=== PATIENT | female | born 1990 | race Caucasian/White ===

== ENCOUNTER 2016-09-14 23:15 | Inpatient (IN) | payer BC ==
[2016-09-14] MEDS ORDERED: LACTATED RINGERS 1,000 ML IV SCH (23:45)
[2016-09-14] MEDS ORDERED: LACTATED RINGERS 500 ML IV SCH (23:45)
[2016-09-15 00:06] LABS: Glucose,Whole Blood 107 mg/dL (75-99)
[2016-09-15] MEDS ORDERED: ceFAZolin 2 GM in SODIUM CHLORIDE 0.9% 100 ML IVPB STA (00:26)
[2016-09-15] MEDS ORDERED: CITRIC ACID-SODIUM CITRATE 15 ML CUP PO ONE (00:30)
[2016-09-15] MEDS ORDERED: LACTATED RINGERS 1,000 ML IV ONE (00:30)
[2016-09-15 00:44] LABS: Basophils # (A) 0.1 k/uL (0-0.2); Basophils % (A) 1 %; CH 27.2; CHCM 34.6; Eosinophils # (A) 0.1 k/uL (0-0.7); Eosinophils % (A) 1 %; HCT 33.1 % (34.0-46.0); HDW 3.75; Luc # (Auto) 0.16; Luc % (Auto) 2; Lymphocytes # (A) 1.6 k/uL (1.0-4.8); Lymphocytes % (A) 17 %; MCH 26.3 pg (25.0-35.0); MCHC 33.3 g/dL (31.0-37.0); MCV 79.1 fL (80.0-100.0); Mean Platelet Volume 8.8; Monocytes # (A) 0.7 k/uL (0-1.0); Monocytes % (A) 8 %; Neutrophils # (A) 6.6 k/uL (1.3-7.7); Neutrophils % (A) 71 %; Poikilocytosis Slight; RBC 4.18 m/uL (3.80-5.40); RDW 13.6 % (11.5-15.5); WBC 9.2 k/uL (3.8-10.6); WBC (Perox) 9.55
[2016-09-15] MEDS ORDERED: MIDAZOLAM 2 MG/2 ML VIAL ONE (00:54)
[2016-09-15] MEDS ORDERED: NALBUPHINE 10 MG/ML AMPUL ONE (00:54)
[2016-09-15] MEDS ORDERED: MORPHINE SULFATE (PF) 0.3 MG/0.3 ML SYR ONE (00:54)
[2016-09-15] MEDS ORDERED: ONDANSETRON 4 MG/2 ML VIAL ONE (00:54)
[2016-09-15] MEDS ORDERED: OXYTOCIN 10 UNIT/ML 1 ML VIAL IM ONE (00:54)
--- NOTE | 2016-09-15 00:56 | P.HPOB ---
History of Present Illness H&P Date: 09/15/16 Chief Complaint: Vaginal bleeding at 37 weeks gestation This is a 26-year-old 5 para 1031 woman who presents at 37 weeks gestation with bright red vaginal bleeding and contractions. She has an estimated due date of 10/03/2016 based on LMP. has been complicated by complete placenta previa in the early portion of the which on most recent ultrasound now is a low-lying posterior placenta. She reports episode of bright red vaginal bleeding and clots at approximately 10:30 PM. She presented to labor and delivery triage where she was not having active bleeding but she did have spontaneous rupture of clear fluids. She was found to be mauricio every 2-4 minutes. Her vital signs were stable and status is reassuring. She and the father of the baby on requesting and has signed consent form for tubal ligation at the time of repeat section. She also has diet-controlled gestational diabetes. Her obstetric history is significant for a previous section in 2013 at 39 weeks for failure to progress. She also has a history of 3 spontaneous miscarriages in 2014 and 2015. Laboratory data: Blood type B positive, antibody screen negative, rubella immune , VDRL nonreactive, hepatitis B surface antigen negative, HIV negative, group B strep negative. Review of Systems All systems: negative Past Medical History Past Medical History: Asthma Additional Past Medical History / Comment(s): Gestational diabetes: diet controlled History of Any Multi-Drug Resistant Organisms: None Reported Past Surgical History: Section Past Anesthesia/Blood Transfusion Reactions: No Reported Reaction Past Psychological History: No Psychological Hx Reported Smoking Status: Never smoker Past Alcohol Use History: None Reported Past Drug Use History: None Reported - Past Family History Mother Family Medical History: Diabetes Mellitus Medications and Allergies Allergies Allergy/AdvReac Type Severity Reaction Status Date / Time No Known Allergies Allergy Verified 09/14/16 23:20 Exam - Vital Signs Vital signs: Intake and Output 09/14/16 09/14/16 09/15/16 14:59 22:59 06:59 Intake Total 1000 Balance 1000 Intake: IV 1000 Lactated Ringers 1,000 ml 1000 @ 125 mls/hr IV [facility] Rx#:[id number] Other: Weight 61.689 kg Patient Weight 09/15/16 06:59 Weight 61.689 kg Pelvic examination is deferred secondary to history of low-lying placenta possible placenta previa. Spontaneous rupture of membranes is confirmed with amnio sure. She is mauricio every 2-4 minutes on the monitor and status is reassuring by external monitoring. The abdomen is gravid, soft and nontender. Results Abnormal Lab Results - Last 24 Hours (Table) 09/14/16 Range/Units 23:53 POC Glucose (mg/dL) 107 H (75-99) mg/dL Assessment and Plan (1) Low-lying placenta Status: Acute (2) Third trimester bleeding Status: Acute (3) 37 weeks gestation of Status: Acute (4) Spontaneous onset of labor Status: Acute (5) Spontaneous rupture of membranes Status: Acute (6) History of Status: Acute (7) Family planning Status: Acute Plan: This is a 26-year-old 5 para 1031 woman who presents at 37+ weeks gestation with vaginal bleeding, spontaneous labor and rupture of membranes. She has a history of a low-lying placenta. Review of most recent ultrasound dated 08/15/2016 describes a posterior low-lying placenta. She has a history of a previous low transverse section and we will proceed to repeat low transverse section and bilateral tubal ligation. I discussed with the patient and her the increased risk of bleeding should there be difficulty with removal of the placenta which is possible with a history of low- lying placenta or previa. They understand these risks as well as a have also been discussed throughout the . The again affirmed their desire for bilateral tubal ligation. status is currently reassuring. The anesthesiology staff has been notified and we will proceed to surgery shortly.
[2016-09-15] MEDS ORDERED: Acetaminophen-Codeine 300-30mg TAB PO PRN (01:38)
[2016-09-15] MEDS ORDERED: SIMETHICONE 80 MG CHEWABLE PO PRN (01:38)
[2016-09-15] MEDS ORDERED: ACETAMINOPHEN TAB 325 MG TAB PO PRN (01:38)
[2016-09-15] MEDS ORDERED: KETOROLAC 30 MG/ML 1 ML VIAL IVP PRN (01:38)
[2016-09-15] MEDS ORDERED: diphenhydrAMINE 50 MG CAP PO PRN (01:38)
[2016-09-15] MEDS ORDERED: diphenhydrAMINE 50 MG/ML 1 ML VIAL IVP PRN ×2 (01:38)
[2016-09-15] MEDS ORDERED: METOCLOPRAMIDE 5 MG/ML 2 ML VIAL IVP PRN (01:38)
[2016-09-15] MEDS ORDERED: ZOLPIDEM 5 MG TAB PO PRN (01:38)
[2016-09-15] MEDS ORDERED: diphenhydrAMINE 25 MG CAP PO PRN (01:38)
--- NOTE | 2016-09-15 01:38 | P.OP ---
Date of Procedure: 09/15/16 Preoperative Diagnosis: Intrauterine at 37-2/7 weeks' gestation History of previous section Vaginal bleeding Spontaneous rupture of membranes Spontaneous onset of labor Low lying placenta Gestational diabetes Desires permanent sterility Postoperative Diagnosis: Same Procedure(s) Performed: Repeat low transverse section and bilateral tubal ligation Anesthesia: spinal Surgeon: Ca Polanco Ballroom Dancer #1: Racheal Bell Estimated Blood Loss (ml): 400 IV fluids (ml): 800 Urine output (ml): 300 Pathology: other (Placenta) Condition: stable Disposition: floor Operative Findings: Male in the vertex presentation dictation with Apgars of 8 at 1 minute and 9 at 5 minutes weighing 5 lbs. 10 oz., 2550 g. Organized clot noted upon entry into the uterus. Clear amniotic fluid noted. Posterior low-lying placenta. Description of Procedure: After the patient was met preoperatively and all questions were answered, she was taken to the operating room where spinal anesthetic was administered without incident. She was then positioned, prepped and draped in the dorsal supine position with a leftward tilt. Fay catheter was placed. After anesthetic was confirmed adequate, a low transverse skin incision was made following the pre-existing scar. This was carried down to the underlying fascia both sharply and with the electrocautery. The fascia was then incised in the midline and extended bilaterally with the Salgado scissors. The superior aspect of the fascial incision was elevated and the underlying rectus muscles dissected off sharply and with the electrocautery. The inferior aspect of the fascial incision was also elevated and the underlying rectus muscles dissected off sharply. The muscles were adherent in the midline. These were bluntly and the peritoneum was tented up with hemostats. The peritoneum was entered sharply with the Metzenbaum scissors. The peritoneal incision was extended inferiorly and superiorly with good visualization of the bladder. The bladder blade was placed. The vesicouterine peritoneum was identified, tented up and entered sharply, the bladder flap was created both sharply and digitally. A low transverse uterine incision was then made sharply and carried down to the underlying amniotic membranes. There was moderate amount of organized dark clot and debris between entry of the uterine cavity and rupture of membranes. Membranes were ruptured and clear fluid was noted. The uterine incision was extended bilaterally bluntly. The 's head was delivered from the incision without difficulty. The nose and mouth were bulb suctioned. The rest of the infant was delivered onto the field without difficulty. And cut and the infant was taken to the warmer. An intact, three-vessel cord placenta was then manually removed and the uterus was exteriorized. The uterus was cleared of all clot and debris. The uterine incision was delineated with Hollins clamps. The uterine incision was then closed in a running locked fashion with 0 Vicryl suture. The right and left fallopian tubes were positively identified and carried out to the fimbriated ends. Filshie clip clips were then applied in the mid ampullary portion of the tubes completely transecting each tube. The uterus was then returned to the abdomen and the gutters were cleared of all clot and debris. The uterine incision was reinspected and Bovie electrocautery was utilized were necessary for hemostasis. The fascial edges, peritoneal edges and rectus muscles were inspected and Bovie electrocautery utilized were necessary for hemostasis. The peritoneum was reapproximated in the midline including the rectus muscles with interrupted 0 Vicryl suture. The fascia was then closed in a running fashion with 0 Vicryl suture. The subcuticular tissue was copiously suction irrigated and Bovie electrocautery utilized were necessary for hemostasis. 3-0 Vicryl suture was utilized to reapproximate the subcuticular tissue. The skin was then closed in a subcutaneous fashion with 4-0 Vicryl suture. All counts reported to me as correct by the operating room staff at the end of the procedure. The patient received antibiotics preoperatively and Pitocin following cord clamp. Mother and were both transported from the room in stable condition.
[2016-09-15] MEDS: OXYTOCIN 30 UNITS/500 ML NS 30 UNIT in SALINE 1 500ML.BAG IV SCH ×3 (03:07→19:59)
[2016-09-15] MEDS: LACTATED RINGERS 1,000 ML IV SCH ×4 (03:27→13:01)
[2016-09-15 08:13] LABS: Hemoglobin A1C 5.6 % (4.2-6.1)
[2016-09-15] MEDS: SENNOSIDES-DOCUSATE SODIUM 1 EACH TAB PO SCH ×2 (12:43→19:34)
[2016-09-15] MEDS: IBUPROFEN 600 MG TAB PO PRN (20:35)
[2016-09-15] MEDS: Acetaminophen-Codeine 300-30mg TAB PO PRN (22:18)
[2016-09-16] MEDS: IBUPROFEN 600 MG TAB PO PRN ×4 (02:54→23:43)
[2016-09-16] MEDS: Acetaminophen-Codeine 300-30mg TAB PO PRN ×4 (04:40→20:12)
[2016-09-16 08:02] LABS: Basophils % (A) 0 %; CH 26.7; CHCM 33.3; Eosinophils # (A) 0.1 k/uL (0-0.7); Eosinophils % (A) 1 %; HCT 29.1 % (34.0-46.0); HDW 3.65; HGB 9.7 gm/dL (11.4-16.0); Hypochromasia Slight; Luc # (Auto) 0.24; Luc % (Auto) 2; Lymphocytes # (A) 1.8 k/uL (1.0-4.8); Lymphocytes % (A) 15 %; MCH 26.7 pg (25.0-35.0); MCHC 33.2 g/dL (31.0-37.0); MCV 80.4 fL (80.0-100.0); Monocytes # (A) 0.7 k/uL (0-1.0); Monocytes % (A) 6 %; Neutrophils % (A) 75 %; Poikilocytosis Slight; RBC 3.62 m/uL (3.80-5.40); RDW 13.5 % (11.5-15.5); WBC 11.9 k/uL (3.8-10.6); WBC (Perox) 12.64
--- NOTE | 2016-09-16 12:05 | P.PNOBGPC ---
Subjective - Subjective Patient reports: Reports appetite normal, Reports voiding normally, Reports pain well controlled, Reports ambulating normally : doing well, nursing well Objective - Vital Signs Latest vital signs: Vital Signs Temp Pulse Resp BP 09/16/16 08:00 98.3 F 84 16 117/71 09/15/16 23:46 99.0 F 82 16 134/81 09/15/16 19:52 98.1 F 81 16 118/74 09/15/16 15:25 97.7 F 77 12 106/69 Intake and Output 09/15/16 09/16/16 09/16/16 22:59 06:59 14:59 Output Total 550 Balance -550 Output: Urine 550 Other: # Voids 1 2 - Exam Lungs: bilateral: normal Chest: Normal S1, Normal S2 Extremities: Present: normal Abdomen: Present: normal appearance, soft. Absent: distention, tenderness Incision: Present: normal, dry, intact Uterus: Present: normal, firm (Uterine fundus as tonic and nontender just below the umbilicus.) - Labs Labs: Abnormal Lab Results - Last 24 Hours (Table) 09/16/16 Range/Units 07:40 WBC 11.9 H (3.8-10.6) k/uL RBC 3.62 L (3.80-5.40) m/uL Hgb 9.7 L (11.4-16.0) gm/dL Hct 29.1 L (34.0-46.0) % Neutrophils # 9.0 H (1.3-7.7) k/uL Assessment and Plan (1) S/P section Narrative/Plan: Continue routine postoperative care. Today is only postoperative day #1. I would anticipate discharge home tomorrow on postoperative day #2. I have encouraged the patient to ambulate in the halls. Current Visit: Yes Status: Acute Code(s): Z98.891 - HISTORY OF UTERINE SCAR FROM PREVIOUS SURGERY SNOMED Code(s): 940468108
--- NOTE | 2016-09-16 12:58 | P.PN ---
Progress Note - Text Date:09/16 Time:1230 Patient is status post . Patient seen this morning with VAS score of 5.no c/o of pruritus, c/o nausea, comfortable and doing well today.
[2016-09-16] MEDS: SENNOSIDES-DOCUSATE SODIUM 1 EACH TAB PO SCH ×2 (17:13→21:33)
[2016-09-17 00:41] VITALS: RESP 18
[2016-09-17] MEDS: Acetaminophen-Codeine 300-30mg TAB PO PRN ×2 (02:21→08:30)
[2016-09-17] MEDS: IBUPROFEN 600 MG TAB PO PRN ×2 (06:23→13:32)
[2016-09-17 08:48] VITALS: BP 102/61; PULSE 92; TEMP 97.8
[2016-09-17] MEDS: SENNOSIDES-DOCUSATE SODIUM 1 EACH TAB PO SCH (09:09)
--- NOTE | 2016-09-17 11:14 | P.DS ---
Providers Date of admission: 09/15/16 00:28 Expected date of discharge: 09/17/16 Attending physician: Francisco Herman Primary care physician: Francisco Herman - Discharge Diagnosis(es) (1) S/P section Current Visit: Yes Status: Acute Hospital Course: The patient is a 26-year-old 5 para 1031 admitted at 37+ weeks with bright red vaginal bleeding and contractions. She has a history of, initially, placenta previa diagnosed at 19 week ultrasound which was found at approximately 32 weeks to have resolved to, most likely, low-lying placenta on the posterior wall of the uterus. She initially presented as noted above with vaginal bleeding and was admitted for observation. She then proceeded to have spontaneous rupture of membranes and carried to history of a previous section with the plan for repeat low transverse section and intraoperative tubal ligation having consent consent to that effect in the office. She therefore is taken to the operating room where she was delivered by repeat low transverse section of a viable 5 lbs. 10 oz. baby boy with Apgars of 8 at 1 minute and 9 at 5 minutes. Her postoperative course was unremarkable vital signs remaining stable and her temperature was afebrile throughout. She was deemed stable for discharge by postoperative day #2 was discharged home to follow-up in the office in 2 weeks for an incision check and 6 weeks routinely. Discharge instructions included calling for any significantly increased bleeding or foul-smelling lochia, significantly increased fever or abdominal pain, perineal complaints, breast complaints, incisional complaints, or anything else that concerned her. She was additionally instructed to have nothing in the vagina for at least 6 weeks time to include intercourse. She is additionally to abstain from any heavy lifting over the same period of time. Lastly she was to do no driving until off of all pain medications or 2 weeks' time, whichever came first. She understood her instructions and agrees to follow up as noted above. Discharge medications included continued vitamins as she has opted to breast-feed. She was additionally given a prescription for Tylenol 3, 1-2 by mouth every 6 hours when necessary pain, #30 dispensed with no refills. She was lastly given a prescription for a dual electric breast pump. Maternal blood type is B+ and rubella status is immune. Discharge hemoglobin and hematocrit were 9.7 and 29.1 respectively. As result she was instructed to use iron sulfate daily for the next month. Procedures: #1. Repeat low transverse section #2. Intraoperative bilateral tubal occlusion with Filshie clips Patient Condition at Discharge: Good Plan - Discharge Summary New Discharge Prescriptions: Acetaminophen-Codeine 300-30mg [Tylenol #3] 2 tab PO Q6H PRN #30 tablet PRN Reason: Pain Discharge Medication List Acetaminophen-Codeine 300-30mg [Tylenol #3] 2 tab PO Q6H PRN #30 tablet [Rx] Follow up Appointment(s)/Referral(s): Francisco Herman MD [Primary Care Provider] - 2 Weeks Patient Instructions/Handouts: (DC) Discharge Disposition: HOME SELF-CARE
== END 2016-09-17 11:15 | disposition home or self-care (01) | DRG 766 ==
LOC: FBPOP 23:15 → 4FBP 09-15 00:28
PROVIDERS: ADMIT Obstetrics & Gynecology; ATTEND Obstetrics & Gynecology
PROC: 10D00Z1 Extraction of Products of Conception, Low, Open Approach (ICD-10-PCS; principal; 2016-09-15 01:13)
PROC: 0UL70CZ Occlusion of Bilateral Fallopian Tubes with Extraluminal Device, Open Approach (ICD-10-PCS; principal; 2016-09-15 01:13)
DX: O44.43 Low lying placenta NOS or without hemorrhage, third trimester (principal); O24.420 Gestational diabetes mellitus in childbirth, diet controlled; J45.909 Unspecified asthma, uncomplicated; O34.211 Maternal care for low transverse scar from previous cesarean delivery; O99.52 Diseases of the respiratory system complicating childbirth; N85.8 Other specified noninflammatory disorders of uterus; Z37.0 Single live birth; Z3A.37 37 weeks gestation of pregnancy; Z30.2 Encounter for sterilization; Z83.3 Family history of diabetes mellitus
CPT/HCPCS: 59025; 83036; 84112; 85025; 86850; 86900; 86901; 88307; 96360; 99214